=== PATIENT | female | born 1970 ===

== ENCOUNTER 2018-08-09 16:06 | Emergency (ER) | payer OTHER, MEDICAID ==
[2018-08-09 16:45] VITALS: TEMP 97.9
--- NOTE | 2018-08-09 17:38 | CT ---
Date of service: 08/09/2018 PROCEDURE: CT HEAD WITHOUT CONTRAST. HISTORY: HEAD INJURY, (+) LOC COMPARISON: None available. TECHNIQUE: Axial computed tomography images were obtained through the head/brain without intravenous contrast. Radiation dose: Total exam DLP = 1007.74 mGy-cm. This CT exam was performed using one or more of the following dose reduction techniques: Automated exposure control, adjustment of the mA and/or kV according to patient size, and/or use of iterative reconstruction technique. FINDINGS: HEMORRHAGE: No intracranial hemorrhage. BRAIN: No mass effect or edema. The black-white matter differentiation appears intact. Please note that MRI with diffusion imaging is more sensitive in the detection of acute ischemic event. VENTRICLES: No hydrocephalus. CALVARIUM: Unremarkable. PARANASAL SINUSES: Unremarkable as visualized. No significant inflammatory changes. MASTOID AIR CELLS: Unremarkable as visualized. No inflammatory changes. OTHER FINDINGS: None. IMPRESSION: No acute intracranial pathology identified.
--- NOTE | 2018-08-09 17:41 | C.PDOC ---
History Of Present Illness 48 year old female presents to the ED for evaluation after she sustained a fall earlier today. Patient states she slipped down a few steps and fell onto her bilateral knees. Patient tried to brace herself by grabbing onto a railing, and bumped her head onto the railing. Patient thinks she had loss of consciousness for several seconds. She is complaining of headache, neck pain, lower back pain, right ankle pain, bilateral knee pain and left shoulder pain. She denies vision change, nausea, vomiting. Time Seen by Provider: 08/09/18 16:21 Chief Complaint (Nursing): Lower Extremity Problem/Injury History Per: Patient History/Exam Limitations: no limitations Onset/Duration Of Symptoms: Hrs Current Symptoms Are (Timing): Still Present Additional History Per: Patient Past Medical History Reviewed: Historical Data, Nursing Documentation, Vital Signs Vital Signs: Last Vital Signs Temp 97.9 F 08/09/18 16:25 Pulse 69 08/09/18 16:25 Resp 18 08/09/18 16:25 BP 130/79 08/09/18 16:25 Pulse Ox 99 08/09/18 16:25 - Medical History PMH: No Chronic Diseases Surgical History: No Surg Hx Family History: States: Unknown Family Hx - Social History Hx Alcohol Use: No Hx Substance Use: No - Immunization History Hx Tetanus Toxoid Vaccination: No Hx Influenza Vaccination: No Hx Pneumococcal Vaccination: No Review Of Systems Musculoskeletal: Positive for: Neck Pain, Shoulder Pain (left ), Back Pain (lower), Other (bilateral knee pain, right ankle pain ) Neurological: Positive for: Headache, Other (bilateral knee pain ) Physical Exam - Physical Exam Appears: Non-toxic, No Acute Distress, Other (in mild pain ) Skin: Normal Color, Warm, Dry, Other (abrasions to bilateral shins ) Head: Atraumatic Eye(s): bilateral: Normal Inspection Oral Mucosa: Moist Neck: No Midline Cervical Tenderness, No Step Off Deformity, Other (mild lower paraspinal tenderness ) Chest: Symmetrical, No Deformity, No Tenderness Cardiovascular: Rhythm Regular, No Murmur Respiratory: Normal Breath Sounds, No Rales, No Rhonchi, No Wheezing Back: Paraspinal Tenderness (lumbar ) Extremity: Tenderness (to left posterior shoulder, bilateral knees, right ankle ), Capillary Refill (less than 2 seconds ), No Deformity, No Swelling Neurological/Psych: Oriented x3, Normal Speech, Normal Cognition ED Course And Treatment O2 Sat by Pulse Oximetry: 99 (on RA) Pulse Ox Interpretation: Normal - CT Scan/US CT Head Other Rad Studies (CT/US): Read By Radiologist, Radiology Report Reviewed CT/US Interpretation: Date of service: 08/09/2018. PROCEDURE: CT HEAD WITHOUT CONTRAST. HISTORY: HEAD INJURY, (+) LOC. COMPARISON: None available. TECHNIQUE: Axial computed tomography images were obtained through the head/brain without intravenous contrast. Radiation dose: Total exam DLP = 1007.74 mGy-cm. This CT exam was performed using one or more of the following dose reduction techniques: Automated exposure control, adjustment of the mA and/or kV according to patient size, and/or use of iterative reconstruction technique. FINDINGS: HEMORRHAGE: No intracranial hemorrhage. BRAIN: No mass effect or edema. The black-white matter differentiation appears intact. Please note that MRI with diffusion imaging is more sensitive in the detection of acute ischemic event. VENTRICLES: No hydrocephalus. CALVARIUM: Unremarkable. PARANASAL SINUSES: Unremarkable as visualized. No significant inflammatory changes. MASTOID AIR CELLS: Unremarkable as visualized. No inflammatory changes. OTHER FINDINGS: None. IMPRESSION: No acute intracranial pathology identified. Progress Note: CT Head, Bilateral Knee XR, Right ankle XR, Cervical Spine XR, LS Spine XR and left shoulder XR ordered. Flexeril PO and Tylenol PO given. Disposition Counseled Patient/Family Regarding: Studies Performed, Diagnosis, Need For Followup, Rx Given - Disposition Referrals: [facility] [Outside] Disposition: HOME/ ROUTINE Disposition Time: 17:40 Condition: STABLE Additional Instructions: FOLLOW UP IN THE MEDICAL CLINIC IN 1-2 DAYS USE MEDICATIONS NEEDED FOR PAIN RETURN TO EMERGENCY ROOM IF YOUR SYMPTOMS BECOME WORSE SEGUIR EN LA CLNICA MDICA EN 1-2 FSIH UTILICE MEDICAMENTOS KRISTEN SE NECESITA PARA EL DOLOR VUELVA A LA SYLVIE DE EMERGENCIA SI KM SNTOMAS SE HACEN [place] Prescriptions: Cyclobenzaprine [Flexeril] 10 mg PO BID PRN #15 tab PRN Reason: Muscle Spasm Naproxen 375 mg PO BID PRN #20 tablet PRN Reason: pain Instructions: Closed Head Injury (DC), Knee Sprain (DC), Shoulder Sprain (DC), Neck Sprain (DC), Ankle Sprain (ED) Forms: [employer] (Lao) Print Language: SLOVAK - POA Present On Arrival: Falls Or Trauma - Clinical Impression Clinical Impression: Head injury, Sprain of left shoulder, Cervical sprain, Knee sprain, bilateral, Lumbar sprain - Scribe Statement The provider has reviewed the documentation as recorded by the Scribe (Fely Stearns) Provider Attestation: All medical record entries made by the Scribe were at my direction and personally dictated by me. I have reviewed the chart and agree that the record accurately reflects my personal performance of the history, physical exam, medical decision making, and the department course for this patient. I have also personally directed, reviewed, and agree with the discharge instructions and disposition.
[2018-08-09 21:16] VITALS: BP 121/76; PULSE 82; RESP 16; O2SAT 96
--- NOTE | 2018-08-10 10:40 | RAD ---
Date of service: 08/09/2018 PROCEDURE: Right Ankle Radiographs. HISTORY: RIGTH ANKLE PAIN AFTER FALL COMPARISON: None available. FINDINGS: BONES: Normal. No fracture. JOINTS: Normal. No osteoarthritis. Ankle mortise maintained. Talar dome intact SOFT TISSUES: Normal. OTHER FINDINGS: None. IMPRESSION: Normal right ankle radiographs.
--- NOTE | 2018-08-10 10:44 | RAD ---
Date of service: 08/09/2018 PROCEDURE: Cervical Spine Radiographs. HISTORY: Pain. COMPARISON: None available. FINDINGS: BONES: Alignment maintained. No fracture. Dens Intact. DISC SPACES: Normal. SOFT TISSUES: Normal. No prevertebral soft tissue swelling. OTHER FINDINGS: None. IMPRESSION: Normal cervical spine radiographs
--- NOTE | 2018-08-10 11:07 | RAD ---
Date of service: 08/09/2018 PROCEDURE: Bilateral Knee Radiographs. HISTORY: B/L KNEE PAIN AFTER FALL COMPARISON: None available. FINDINGS: BONES: Right Knee: No acute displaced fracture identified. Left Knee: No acute displaced fracture identified. JOINTS: Right Knee: Unremarkable. No dislocation. No significant osteoarthritis. Left knee: Unremarkable. No dislocation. No significant osteoarthritis. SOFT TISSUES: Right Knee: Unremarkable. No evidence of radiopaque foreign body. Left Knee: Unremarkable. No evidence of radiopaque foreign body. JOINT EFFUSION: Right Knee: No significant joint effusion identified. Left Knee: No significant joint effusion identified. OTHER FINDINGS: None. IMPRESSION: No acute displaced fracture identified.
--- NOTE | 2018-08-10 11:10 | RAD ---
Date of service: 08/09/2018 PROCEDURE: Radiographs of the Lumbar Spine. HISTORY: low back pain after fall COMPARISON: None available. FINDINGS: BONES: Alignment appears satisfactory. No listhesis. No acute displaced fracture identified. DISC SPACES: Unremarkable. OTHER FINDINGS: None. IMPRESSION: No acute displaced fracture or subluxation identified.
--- NOTE | 2018-08-10 11:19 | RAD ---
PROCEDURE: Radiographs of the Left Shoulder HISTORY: left shoulder pain after fall COMPARISON: No prior. FINDINGS: BONES: No acute displaced fracture. The distal clavicle and underlying ribs appear intact. 4.1 x 1.3 cm sclerotic lesion involving the proximal left humerus, favored to represent chondroid lesion. JOINTS: No acute dislocation. SOFT TISSUES: Soft tissues appear unremarkable. No evidence of radiopaque foreign body. IMPRESSION: No acute displaced fracture or dislocation evident. If symptoms persist or if there is continued clinical concern, x-ray follow-up in 7-10 days should be considered. 4.1 x 1.3 cm sclerotic lesion involving the left proximal humerus, likely chondroid lesion.
== END 2018-08-09 21:16 | disposition home or self-care (01) ==
LOC: C.ER 16:06
DX: S09.90XA Unspecified injury of head, initial encounter (principal); S43.402A Unspecified sprain of left shoulder joint, initial encounter; S13.4XXA Sprain of ligaments of cervical spine, initial encounter; S33.5XXA Sprain of ligaments of lumbar spine, initial encounter; S83.91XA Sprain of unspecified site of right knee, initial encounter; S83.92XA Sprain of unspecified site of left knee, initial encounter; W01.0XXA Fall on same level from slipping, tripping and stumbling without subsequent striking against object, initial encounter